=== PATIENT | male | born 1990 | race Caucasian/White ===

== ENCOUNTER 2021-08-30 09:32 | Inpatient (IN) ==
[2021-08-30 10:44] LABS: Basophils # (auto) 0.02 K/uL (0-0.2); Basophils % (auto) 0.5 %; Eosinophils % (auto) 2.3 %; Hematocrit (blood only) 40.3 % (42-52); Hemoglobin 13.5 g/dL (14.0-18.0); Immature Granulocytes # (auto) 0.01 K/uL (0.00-0.02); Immature Granulocytes % (auto) 0.2 %; Lymphocytes # (auto) 1.44 K/uL (1.2-3.4); Lymphocytes % (auto) 33.6 %; Mean Corpuscular Hemoglobin 26.4 pg (25-34); Mean Corpuscular Hgb Conc 33.5 g/dL (32-36); Mean Corpuscular Volume 78.7 fL (80-100); Mean Platelet Volume 8.5 fL (7.4-10.4); Neutrophils # (auto) 2.42 K/uL (1.4-6.5); Neutrophils % (auto) 56.4 %; Platelet Count 268 K/uL (130-400); RDW Coefficient of Variation 13.4 % (11.5-14.5); RDW Standard Deviation 38.5 fL (36.4-46.3); Red Blood Count 5.12 M/uL (4.7-6.1); White Blood Count 4.29 K/uL (4.8-10.8)
--- NOTE | 2021-08-30 11:02 | Emergency Department Note ---
Impression & Plan Biliary colic, Nausea, Irregular bowel habits, Abdominal pain, Anemia ED Provider Note NAME: JIMI ORELLANA AGE: 31 SEX: M : 1990 ARRIVES VIA: Walk-In INFORMANT: Patient, ED PROVIDER(S): Jacques Boyd MD Chief Complaint: Abdominal pain HPI: Patient does present with concern for abdominal pain which is been ongoing since May but is been acutely worse since this past weekend. The patient did go to [facility] and had a fairly unremarkable work-up at that time. The patient reportedly has had a prior history of imaging and HIDA scans. Patient does have biliary colic but without any history of gallstones per patient. Patient has been taking [id number] as well as prescription narcotic med ication but without improvement in symptoms. Patient states that it is a sharp ache that is fairly constant and located right upper quadrant. Patient does state it radiates to his back. No recent surgeries procedures or trauma to the abdomen or back. Patient denies any history of kidney stones dysuria hematuria. Patient denies any alcohol or tobacco use. The patient is supposed to have cholecystectomy on September [address] Tuttle but they did call the office today and they referred here for further evaluation and treatment. Patient has had intermittent constipation with diarrhea and does believe that this may be secondary to the narcotics. Patient is not vaccinated for COVID-19. Patient was seen by general surgery Dr. Tuttle on August 20 and the patient does seem to have a presentation of symptoms consistent with biliary colic. There was thought that the patient may have biliary hyperkinesia. The plan was for the patient to have a cholecystectomy to be completed in mid September with the patient has had worsening attacks worsening severity and increasing symptoms just in the last 5 days to where the patient does not think that he is going to be able to control his pain in the outpatient setting until his procedure the patient has had upper and lower endoscopies, CAT scan and ultrasound HIDA scan. Everything has been negative other than in the ejection fraction on his HIDA scan of 98% possibly indicative of biliary hyperkinesia. ROS: See HPI for pertinent positives and negatives. A total of 10 systems were reviewed and otherwise negative. Past medical history: See below Surgical history: See below Social history: See below Physical Exam: GENERAL: NAD, wearing glasses, wearing a mask, non-toxic. EYE EXAM: Normal conjunctiva. PERRL, no anisocoria and EOM's grossly intact w/o pain. NECK: Supple, no nuchal rigidity, no adenopathy, non-tender. No signs of meningismus. LUNGS: Clear to auscultation. Normal chest wall mechanics. HEART: NSR, no MRG. ABDOMEN: Abdomen soft, right upper quadrant pain without epigastric or lower abdominal pain, normo-active bowel sounds, no masses, no rebound or guarding. BACK: No CVA TTP. SKIN: No rashes and no bruising. UPPER EXTREMITIES: Upper extremities are grossly normal. LOWER EXTREMITIES: Grossly normal, no edema. NEURO EXAM: A&O x3, cranial nerves II-XII grossly intact, normal speech, moves all 4 extremities on command w/o issue. Differential diagnoses: Appendicitis, testicular torsion, infections, diverticulitis, UTI, obstruction, mesenteric ischemia, aortic pathology, inflammatory bowel disease, renal colic, PUD, pancreatitis, biliary pathology, hernia, volvulus, constipation, as well as other pathologies. Course: Patient was seen and evaluated the bedside. Full history physical exam was performed. Imaging Studies: See Below Cardiac monitoring: An order was placed for continuous cardiac monitoring. The monitor shows a rate of 75 with sinus rhythm. MDM: Patient was seen due to concerns for right upper quadrant pain. Blood work was obtained along with right upper quadrant ultrasound. Patient does have mild leukopenia and anemia but platelet count is normal. Kidney function is unremarkable. No major abnormalities with LFTs or lipase. Urinalysis shows ketones but no blood. Right upper quadrant ultrasound is negative. I did speak with the on-call general surgeon Robbie Rangel PA-C and the patient was admitted by Dr. Colbert of general surgery pending likely cholecystectomy tomorrow. Past Med/Surg History Medical History Asthma A CHILD-NO INHALERS Palpitations ON OCC-NO CARDIOLOGY Temporomandibular joint disorder PAIN IN JAW-NO LOCKING Surgical History H/O colonoscopy 03/2021 H/O nasal septoplasty History of esophagogastroduodenoscopy (EGD) Family History Grandfather (Maternal) Colorectal cancer Grandfather (Paternal) Diabetes Mother Family history of reaction to anesthesia SLOW TO WAKE UP Denies family history of Crohn's disease Ulcerative colitis Social History Smoking Status: Never smoker Second Hand Exposure: Yes (FATHER SMOKES); Hx Alcohol Use: Yes Alcohol type: beer, wine and hard liquor Alcohol Intake Frequency Comment: occasionally Hx Substance Use: No Preferred Language: Slovak Communication Ability: Effective Hearing Ability: Normal Brim Molder Required: No Beliefs That Will Affect Care: None marital status: Current Living Situation: Spouse current occupational status: employed 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 [employer] How many Children do You have: 0 Feels Safe at Home: Yes during the past year weight has: remained stable Assistive Devices: Contacts and Glasses Allergies Allergies Allergy/AdvReac Type Severity Reaction Status Date / Time No Known Allergies Allergy Verified 08/30/21 14:03 Home Meds Home Medications Medication Instructions Recorded Confirmed dicyclomine 10 mg capsule 10 mg PO TID PRN cap 07/30/21 08/30/21 ondansetron HCl 4 mg tablet 4 mg PO Q6H PRN 07/30/21 08/30/21 (Zofran) hydrocodone 5 mg-acetaminophen 325 1.5 tab PO UD PRN 08/30/21 08/30/21 mg tablet Results & Data (ED) Vital Signs Vital Signs - 24 hr 08/30/21 10:02 08/30/21 11:00 08/30/21 11:24 Temperature 36.6 C Temperature Source Oral Pulse Rate 72 Pulse Rate [Right Finger] 73 Pulse Rhythm Regular Pulse Rhythm [Right Finger] Regular Pulse Strength Normal Pulse Strength [Right Finger] Normal Respiratory Rate 20 18 Respiratory Effort / Characteristics Non-Labored Spontaneous Non-Labored Respiratory Depth Normal Normal Respiratory Pattern Regular Regular Blood Pressure 106/74 Blood Pressure [Right Arm] 119/74 Blood Pressure Mean 84 Blood Pressure Mean [Right Arm] 89 Blood Pressure Position Sitting Blood Pressure Position [Right Arm] Lying Pulse Oximetry 99 100 Oxygen Delivery Method Room Air Room Air Room Air Sepsis Recent Fever Within 48 Hours No Sepsis New/Unexplained Change in Mental Status No Sepsis Action Taken by Nursing No Action Required 08/30/21 12:00 08/30/21 14:00 Temperature Temperature Source Pulse Rate Pulse Rate [Right Finger] 73 70 Pulse Rhythm Pulse Rhythm [Right Finger] Regular Regular Pulse Strength Pulse Strength [Right Finger] Normal Normal Respiratory Rate 18 18 Respiratory Effort / Characteristics Non-Labored Non-Labored Respiratory Depth Normal Normal Respiratory Pattern Regular Blood Pressure Blood Pressure [Right Arm] 113/66 113/66 Blood Pressure Mean Blood Pressure Mean [Right Arm] 81 81 Blood Pressure Position Blood Pressure Position [Right Arm] Lying Lying Pulse Oximetry 100 99 Oxygen Delivery Method Room Air Room Air Sepsis Recent Fever Within 48 Hours Sepsis New/Unexplained Change in Mental Status Sepsis Action Taken by Intermediate Medications Current Medication List: was personally reviewed by me Laboratory Data Attestation: I reviewed the patient's lab results. Result diagrams: 08/30/21 10:33 08/30/21 10:33 Lab Results 08/30/21 08/30/21 08/30/21 Range/Units 10:33 10:33 15:00 WBC 4.29 L (4.8-10.8) K/uL RBC 5.12 (4.7-6.1) M/uL Hgb 13.5 L (14.0-18.0) g/dL Hct 40.3 L (42-52) % MCV 78.7 L (80-100) fL MCH 26.4 (25-34) pg MCHC 33.5 (32-36) g/dL RDW Std Deviation 38.5 (36.4-46.3) fL RDW Coeff of Trung 13.4 (11.5-14.5) % Plt Count 268 (130-400) K/uL MPV 8.5 (7.4-10.4) fL Immature Gran % (Auto) 0.2 % Neut % (Auto) 56.4 % Lymph % (Auto) 33.6 % [place] % (Auto) 7.0 % Eos % (Auto) 2.3 % Baso % (Auto) 0.5 % Neut # (Auto) 2.42 (1.4-6.5) K/uL Lymph # (Auto) 1.44 (1.2-3.4) K/uL [place] # (Auto) 0.30 (0.11-0.59) K/uL Eos # (Auto) 0.10 (0-0.5) K/uL Baso # (Auto) 0.02 (0-0.2) K/uL Immature Gran # (Auto) 0.01 (0.00-0.02) K/uL Sodium 139 (136-145) mmol/L Potassium 4.0 (3.5-5.1) mmol/L Chloride 107 (98-107) mmol/L Carbon Dioxide 29 (21-32) mmol/L Anion Gap 3.0 (3-11) BUN 11 (7-18) mg/dl Creatinine 1.23 (0.6-1.4) mg/dl Est Cr Clr Drug Dosing 68.3 ml/min Est GFR ( Amer) 90.1 ml/min Est GFR (Non-Af Amer) 77.7 ml/min BUN/Creatinine Ratio 8.8 L (10-20) Glucose 93 (70-99) mg/dl Calcium 9.5 (8.5-10.1) mg/dl Total Bilirubin 0.7 (0.2-1) mg/dl AST 14 L (15-37) U/L ALT 20 (12-78) U/L Alkaline Phosphatase 84 (45-117) U/L Total Protein 8.4 H (6.4-8.2) gm/dl Albumin 4.3 (3.4-5.0) gm/dl Globulin 4.1 H (2.5-4.0) gm/dl Albumin/Globulin Ratio 1.0 (0.9-2) Lipase 146 (73-393) U/L Urine Color Yellow Urine Appearance Clear (Clear) Urine pH 6.5 (4.5-7.5) Ur Specific [place] 1.017 (1.000-1.030) Urine Protein Negative (Negative) Urine Glucose (UA) Negative (Negative) Urine Ketones 2+ H (Negative) Urine Blood Negative (Negative) Urine Nitrite Negative (Negative) Urine Bilirubin Negative (Negative) Urine Urobilinogen Negative (Negative) Ur Leukocyte Esterase Negative (Negative) Administered Medications Discontinued Medications Sodium Chloride (Nss 1000ml) 1,000 mls @ 999 mls/hr IV .Q1H1M STA Stop: 08/30/21 12:24 Last Infusion: 08/30/21 13:20 Dose: 0 mls/hr Documented by: [id number] Admin: 08/30/21 11:52 Dose: 999 mls/hr Documented by: [id number] Morphine Sulfate (Morphine Sulfate 4 Mg/Ml 1 Ml Carp\Vial) 4 mg IV NOW STA Stop: 08/30/21 11:25 Last Admin: 08/30/21 11:52 Dose: 4 mg Documented by: [id number] Ondansetron HCl (Ondansetron Inj 2 Mg/Ml 2 Ml Vial) 4 mg IV NOW STA Stop: 08/30/21 11:25 Last Admin: 08/30/21 11:52 Dose: 4 mg Documented by: [id number] Imaging Data Radiologist's Impression: Gallbladder Ultrasound 08/30/21 11:24 ABDOMINAL ULTRASOUND, RIGHT UPPER QUADRANT HISTORY: Right upper quadrant pain/biliary colic. COMPARISON: None. FINDINGS: Pancreas: The pancreas demonstrates a normal echotexture. Liver: Unremarkable. Gallbladder: No gallbladder wall thickening. No gallstones. A 2 mm gallbladder polyp. CBD: 6 mm. Right kidney: No hydronephrosis. IMPRESSION: 1. No gallbladder wall thickening. No gallstones. 2. Normal caliber common bile duct. 3. Incidental note is made of a 2 mm gallbladder polyp. ACT 112: Negative or not required by law. Electronically signed by: Jose G Spicer M.D. 08/30/2021 12:35 PM Discharge Plan Visit Data Chief Complaint: Abdominal Pain Stated Complaint: GALLBLADDER PAIN ED Provider: Jacques Boyd Discharge Problem: Biliary colic, Nausea, Irregular bowel habits, Abdominal pain, Anemia Patient Disposition: Admitted As Inpatient Forms [facility] Prescriptions Prescriptions: No Action dicyclomine 10 mg capsule 10 mg PO TID PRN (Reason: Abdominal Pain) RF: 0 ondansetron HCl [Zofran] 4 mg tablet 4 mg PO Q6H PRN (Reason: Nausea) RF: 0 hydrocodone-acetaminophen 5-325 mg tablet 1.5 tab PO UD PRN (Reason: Pain) RF: 0 Referrals Referrals: Bijan Samson M.D. [Primary Care Provider] -
[2021-08-30 11:03] LABS: Albumin Level 4.3 gm/dl (3.4-5.0); BUN Creatinine Ratio 8.8 (10-20); Calcium 9.5 mg/dl (8.5-10.1); Creatinine Clr Calc Pharmacy 68.3 ml/min; Est GFR (African American) 90.1 ml/min; Est GFR (Non-African American) 77.7 ml/min
[2021-08-30 11:06] LABS: Bilirubin,Total 0.7 mg/dl (0.2-1); Globulin 4.1 gm/dl (2.5-4.0); Total Protein 8.4 gm/dl (6.4-8.2)
[2021-08-30] MEDS ORDERED: ONDANSETRON INJ 2 MG/ML 2 ML VIAL IV STA (11:24)
[2021-08-30] MEDS ORDERED: MoRPHine SULFATE 4 MG/ML 1 ML CARP\\VIAL IV STA (11:24)
[2021-08-30] MEDS ORDERED: SODIUM CHLORIDE 0.9% 1000ML 1,000 ML IV STA (11:24)
--- NOTE | 2021-08-30 12:36 | Ultrasound Report ---
ABDOMINAL ULTRASOUND, RIGHT UPPER QUADRANT HISTORY: Right upper quadrant pain/biliary colic. COMPARISON: None. FINDINGS: Pancreas: The pancreas demonstrates a normal echotexture. Liver: Unremarkable. Gallbladder: No gallbladder wall thickening. No gallstones. A 2 mm gallbladder polyp. CBD: 6 mm. Right kidney: No hydronephrosis. IMPRESSION: 1. No gallbladder wall thickening. No gallstones. 2. Normal caliber common bile duct. 3. Incidental note is made of a 2 mm gallbladder polyp. ACT 112: Negative or not required by law. Electronically signed by: Jose G Spicer M.D. 08/30/2021 12:35 PM
--- NOTE | 2021-08-30 14:15 | History & Physical Report ---
Date of Service August 30, 2021 Assessment & Plan (1) Biliary colic: Plan: Was scheduled for outpatient surgery but symptoms have increased and has been to the ED the past two days. Will plan for admission for IV therapy and laparoscopic cholecystectomy in the morning. History of Present Illness Primary Care Provider: Bijan Samson 31 y/o male with RUQ pain, nausea for the past three nights. Was at [facility] ER yesterday. Is scheduled for outpatient cholecystectomy in two weeks. Symptoms have increased since he was last seen in clinic [address] Tuttle. Allergies Allergy/AdvReac Type Severity Reaction Status Date / Time No Known Allergies Allergy Verified 08/30/21 14:03 Home Medications Medication Instructions Recorded Confirmed Type dicyclomine 10 mg capsule 10 mg PO TID PRN cap 07/30/21 08/30/21 History ondansetron HCl 4 mg tablet 4 mg PO Q6H PRN 07/30/21 08/30/21 History (Zofran) hydrocodone 5 mg-acetaminophen 325 1.5 tab PO UD PRN 08/30/21 08/30/21 History mg tablet Past Med/Surg History Medical History Asthma A CHILD-NO INHALERS Palpitations ON OCC-NO CARDIOLOGY Temporomandibular joint disorder PAIN IN JAW-NO LOCKING Surgical History H/O colonoscopy 03/2021 H/O nasal septoplasty History of esophagogastroduodenoscopy (EGD) Family History Grandfather (Maternal) Colorectal cancer Grandfather (Paternal) Diabetes Mother Family history of reaction to anesthesia SLOW TO WAKE UP Denies family history of Crohn's disease Ulcerative colitis Social History Smoking Status: Never smoker Second Hand Exposure: Yes (FATHER SMOKES); Hx Alcohol Use: Yes Alcohol type: beer, wine and hard liquor Alcohol Intake Frequency Comment: occasionally Hx Substance Use: No Preferred Language: Barbadian Communication Ability: Effective Hearing Ability: Normal Software Licensing Analyst Required: No Beliefs That Will Affect Care: None marital status: Current Living Situation: Spouse current occupational status: employed 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[employer] How many Children do You have: 0 Feels Safe at Home: Yes during the past year weight has: remained stable Assistive Devices: Contacts and Glasses Review of Systems Constitutional: + anorexia; no fever and no chills Respiratory: no cough and no dyspnea Gastrointestinal: + abdominal pain, + nausea, + vomiting and + diarrhea/loose stools Physical Exam Constitutional: WD/WN, vitals as above Respiratory: normal respiratory effort, lungs clear to auscultation Cardiovascular: RRR, no murmur, no edema Gastrointestinal (Abdomen): Inspection/Auscultation: abdomen normal to inspection; abdomen not distended Percussion/Palpation: + abdomen tender (RUQ) and abdomen soft Skin: no rashes, warm and dry Results & Data Results & Data ([facility]) Vital Signs (Past 12 Hours) Vital Signs Temp Pulse Pulse Resp BP BP Pulse Ox 08/30/21 12:00 73 18 113/66 100 08/30/21 11:00 73 18 119/74 100 08/30/21 10:02 36.6 C 72 20 106/74 99 Supervising Physician Co-Signing Physician Notes I personally saw and examined the patient with Jose Rangel PA-C and agree with the assessment and plan. 31-year-old male with biliary colic and biliary hyperkinesia He has had 3 days of pain and is unable to tolerate p.o. intake Will plan on admission and clear liquid diet until midnight then n.p.o. and plan for laparoscopic cholecystectomy tomorrow Consent was obtained risks were discussed including bleeding, infection, bile leak, ductal injury He is aware that his symptoms may not resolve with cholecystectomy
[2021-08-30 15:23] LABS: Appearance Urine Clear (Clear); Bilirubin Urine Negative (Negative); Blood Urine Negative (Negative); Color Urine Yellow; Glucose Urine UA Negative (Negative); Ketones Urine 2+ (Negative); Leukocyte Esterase Urine Negative (Negative); Nitrite Urine Negative (Negative); Protein Urine Negative (Negative); Specific Gravity Urine 1.017 (1.000-1.030); Urobilinogen Urine Negative (Negative); pH Urine 6.5 (4.5-7.5)
[2021-08-30] MEDS: ONDANSETRON INJ 2 MG/ML 2 ML VIAL IV PRN (19:43)
[2021-08-30] MEDS ORDERED: MoRPHine SULFATE 4 MG/ML 1 ML CARP\\VIAL IV PRN (19:45)
--- NOTE | 2021-08-30 21:11 | Communication Note ---
Date of Service: August 30, 2021 I was called by RN earlier this evening at approximately 7:30 PM the patient was having nausea as well as abdominal pain. Patient was not having any emesis and not having any fevers. Patient was medicated with morphine as well as Zofran. I was contacted by the RN again at approximately 9:00 PM that patient was having continued nausea. I visited with the patient in the emergency department in room B3. On exam the patient's abdomen is soft and nondistended. He did have pain with palpation in the right upper quadrant. Patient did not have any emesis while I was in attendance. Vital signs were reviewed and patient's BP is 94/55. His pulse is 91 and regular. Respirations are 18 and nonlabored and patient is noted be afebrile with temperature 36.8. His pulse ox is 99% on room air. Is quite possible that the patient's nausea is related to both his underlying gallbladder issues but may also be a side effect of the analgesics have been administered. As the Zofran was unsuccessful (was given within the past hour) we will try an alternative antiemetic. Order placed for 12.5 mg of IV Phenergan. Plans noted for patient undergo cholecystectomy tomorrow morning by Dr. Colbert. We will keep patient n.p.o..
[2021-08-30] MEDS ORDERED: PROMETHAZINE HCL 12.5 MG in SODIUM CHLORIDE 0.9% 50 ML IV ONE (21:30)
[2021-08-30] MEDS ORDERED: MoRPHine SULFATE 2 MG/ML CARP IV PRN (23:04)
[2021-08-30] MEDS ORDERED: DICYCLOMINE HCL 10 MG CAP PO PRN (23:04)
[2021-08-30] MEDS: LACTATED RINGER'S 1,000 ML IV SCH (23:41)
[2021-08-31] MEDS: LACTATED RINGER'S 1,000 ML IV SCH (07:49)
--- NOTE | 2021-08-31 10:23 | History & Physical Bridge Note ---
Date of Service August 31, 2021 History & Physical Bridge Note I have examined the patient, reviewed the History & Physical and in the interval since the performance of the History & Physical I have noted the following changes of clinical significance: no changes noted
[2021-08-31] MEDS ORDERED: EPINEPHrine INJ 1 MG/ML AMP ONE (10:25)
[2021-08-31] MEDS ORDERED: BUPIVACAINE 0.25% 30 ML VIAL ONE (10:25)
[2021-08-31] MEDS ORDERED: NEOSTIGMINE METHYLSULFATE 1 MG/ML 10ML VIAL ONE (10:30)
[2021-08-31] MEDS ORDERED: fentaNYL citrate 100 MCG/2 ML VIAL ONE (10:30)
[2021-08-31] MEDS ORDERED: PROPOFOL IV EMULSION 10 MG/ML 20 ML VIAL IV ONE (10:30)
[2021-08-31] MEDS ORDERED: DEXAMETHASONE SOD INJ 4 MG/ML VIAL ONE (10:30)
[2021-08-31] MEDS ORDERED: GLYCOPYRROLATE 0.2 MG/ML VIAL ONE (10:30)
[2021-08-31] MEDS ORDERED: ONDANSETRON INJ 2 MG/ML 2 ML VIAL ONE (10:30)
[2021-08-31] MEDS ORDERED: LIDOCAINE 2% 2 ML VIAL/AMP(20MG/ML) INFIL ONE (10:30)
[2021-08-31] MEDS ORDERED: MIDAZOLAM HCL 1 MG/ML 2ML VIAL ONE (10:30)
--- NOTE | 2021-08-31 10:46 | Anesthesiology Consultation ---
Date of Service August 31, 2021 Assessment & Plan (1) Encounter for pre-operative examination: Chart Review Chart Review: Acceptable Risk for Surgery and Patient NOT seen in Pre Admission Testing Consults Requested none History Surgery Operation Date: 08/31/21 10:35 Proposed Procedures p Laparoscopic Cholecystectomy - Saji Colbert DO Height/Weight Height: 5 ft 6 in Weight: 64.5 kg Allergies Allergy/AdvReac Type Severity Reaction Status Date / Time No Known Allergies Allergy Verified 08/30/21 14:03 Medications Home Medications Medication Instructions Recorded Confirmed Last Taken dicyclomine 10 mg capsule 10 mg PO TID PRN cap 07/30/21 08/30/21 08/29/21 ondansetron HCl 4 mg tablet 4 mg PO Q6H PRN 07/30/21 08/30/21 08/30/21 (Zofran) hydrocodone 5 mg-acetaminophen 325 1.5 tab PO UD PRN 08/30/21 08/30/21 08/30/21 mg tablet Active Medications Generic Name Dose Route Start Last Admin Trade Name Imtiazq PRN Reason Stop Dose Admin Lactated Ringer's 1,000 mls @ 125 mls/hr 08/30/21 23:04 08/31/21 07:49 Lr IV 09/29/21 23:03 125 mls/hr .Q8H JIN Administration Morphine Sulfate 4 mg 08/30/21 19:45 08/30/21 19:53 Morphine Sulfate 4 Mg/Ml 1 Ml Carp\Vial IV 09/13/21 19:44 4 mg Q1H PRN Administration Pain (6,7,8,9,10) Ondansetron HCl 4 mg 08/30/21 19:26 08/30/21 19:43 Ondansetron Inj 2 Mg/Ml 2 Ml Vial IV 09/29/21 19:25 4 mg Q4H PRN Administration Nausea And Vomiting NPO Date Last Intake of Fluids: 08/30/21 Time Last Intake of Fluids: 23:50 Date Last Intake of Solids: 08/30/21 Past Medical History Medical History Asthma A CHILD-NO INHALERS Palpitations ON OCC-NO CARDIOLOGY Temporomandibular joint disorder PAIN IN JAW-NO LOCKING Past Family History Family History Grandfather (Maternal) Colorectal cancer Grandfather (Paternal) Diabetes Mother Family history of reaction to anesthesia SLOW TO WAKE UP Denies family history of Crohn's disease Ulcerative colitis Past Surgical History Surgical History H/O colonoscopy 03/2021 H/O nasal septoplasty History of esophagogastroduodenoscopy (EGD) Social History Smoking Status: Never smoker Hx Alcohol Use: Yes Alcohol type: beer, wine and hard liquor alcohol intake frequency: a few times a month Hx Substance Use: Yes substance use type: opiates Substance Use Type Other:: perscribed hydrocodon Last Used Substance: Just Prior to Arrival Physical Exam Vital Signs Last Vital Signs Temp 36.7 C 08/31/21 07:48 Pulse 77 08/31/21 07:48 Resp 16 08/31/21 07:48 BP 108/66 08/31/21 07:48 Pulse Ox 97 08/31/21 07:48 Testing Laboratory Results 08/30/21 10:33 08/30/21 10:33 Urine Color Yellow 08/30/21 15:00 Urine Appearance Clear (Clear) 08/30/21 15:00 Urine pH 6.5 (4.5-7.5) 08/30/21 15:00 Ur Specific [place] 1.017 (1.000-1.030) 08/30/21 15:00 Urine Protein Negative (Negative) 08/30/21 15:00 Urine Glucose (UA) Negative (Negative) 08/30/21 15:00 Urine Ketones 2+ (Negative) H 08/30/21 15:00 Urine Nitrite Negative (Negative) 08/30/21 15:00 Ur Leukocyte Esterase Negative (Negative) 08/30/21 15:00
[2021-08-31] MEDS ORDERED: ceFAZolin 2,000 MG/15 ML IV PUSH IV ONE (11:21)
[2021-08-31] MEDS ORDERED: ceFAZolin 2000MG 2,000 MG/15 ML SYR IV ONE (11:25)
[2021-08-31] MEDS ORDERED: SCOPOLAMINE 1 MG TDSY TD ONE ×2 (11:34→11:37)
[2021-08-31] MEDS ORDERED: ATROPINE SULFATE 0.1 MG/ML 10ML SYR IV PRN (11:34)
[2021-08-31] MEDS ORDERED: PROMETHAZINE HCL 12.5 MG in SODIUM CHLORIDE 0.9% 50 ML IV PRN (11:34)
[2021-08-31] MEDS ORDERED: ePHEDrine sulfate 50 MG/ML AMP IV PRN (11:34)
[2021-08-31] MEDS ORDERED: ONDANSETRON INJ 2 MG/ML 2 ML VIAL IV PRN (11:34)
[2021-08-31] MEDS ORDERED: KETOROLAC 30 MG/ML VIAL ONE (12:39)
[2021-08-31] MEDS ORDERED: ROCURONIUM BROMIDE 10 MG/ML 5 ML VIAL IV ONE (12:39)
--- NOTE | 2021-08-31 12:44 | Post Operative Brief Note ---
PG Immediate Post Op with CF Date of Surgery August 31, 2021 Pre & Post Diagnosis Operation Date: 08/31/21 10:35 Pre-Op Diagnosis: BILIARY COLIC, gallbladder polyp Post-Op Diagnosis: BILIARY COLIC, gallbladder polyp I identified the patient and participated in the time-out.: Yes Procedure Operation Date: 08/31/21 10:35 Actual Procedures p Laparoscopic Cholecystectomy(Not Applicable) - Saji Colbert DO Surgeon Saji Colbert DO Packing Tractor Machine Operator Adina Baldwin PA-C Estimated Blood Loss 5 Findings See Below Omental adhesions to gallbladder Specimens Specimen Description: Permanent specimen: A. Gallbladder and contents Anesthesia Type General Complications none Disposition Disposition: Recovery Room
--- NOTE | 2021-08-31 12:49 | Operative Report ---
PG Post Operative Report Pre & Post Diagnosis Operation Date: 08/31/21 10:35 Pre-Op Diagnosis: BILIARY COLIC, gallbladder polyp Post-Op Diagnosis: BILIARY COLIC, gallbladder polyp I identified the patient and participated in the time-out.: Yes Procedure Operation Date: 08/31/21 10:35 Actual Procedures p Laparoscopic Cholecystectomy(Not Applicable) - Saji Colbert DO Surgeon Saji Colbert DO Plumbing Designer Adina Baldwin PA-C Estimated Blood Loss 5 Findings See Below Omental adhesions to gallbladder Fluids see anesthesia record Specimens Gallbladder to pathlogy Drains None Anesthesia Type General Complications none Disposition Disposition: Recovery Room Indications 31 yo male with hyperdynamic gallbladder, gallbladder polyp with biliary colic symptoms Description of Procedure The patient was brought to the operating room and placed in the supine position with both arms extended. At this time he underwent general endotracheal anesthesia without any problems. He was given appropriate pre-operative antibiotics. His abdomen was prepped and draped in the usual sterile fashion. A timeout was called, the procedure was verified as Laparoscopic cholecystectomy, possible open, possible intra-operative cholangiogram. Surgical, nursing and anesthesia teams agreed and the procedure was begun. After injection of 0.25% Marcaine with epinephrine, a supraumbilical vertical incision was made and carried down to the fascia using S-retractors. The a bdominal wall was then elevated with towel clamps and abdomen entered using the Veress needle confirming position using the saline drop test. Pneumoperitoneum was established. 5mm trocar was placed. Laparoscope was introduced. No injury from entry into the abdomen was visualized after inspection of the abdomen. Three further ports were placed under direct visualization. One 11mm in the subxiphoid region and two 5mm in the RUQ. At this time the abdomen was inspected and the gallbladder identified. There were omental adhesions to the gallbladder that were lysed using blunt and sharp dissection. The gallbladder fundus was grasped and retracted cephalad. The gallbladder infundibulum was then grasped and retracted laterally. The cystic duct and cystic artery were then identified and skeletonized. The critical view of safety was obtained. They were both then clipped twice proximally and once distally and then divided using scissors. The gallbladder was then taken off of the liver bed using electrocautery and placed in an endocatch bag and removed from the subxiphoid port. The liver bed was then inspected and no bile leak or bleeding was evident. The subxiphoid port was then closed using 0-Vicryl using the suture passer. The trocars were then removed under direct visualization and no bleeding was present. Abdomen was desufflated. The skin was then closed using 4-0 Monocryl in a subcuticular fashion. Sterile dressings were applied. Needle and sponge counts were correct x 2. At this time the patient was awoken from anesthesia and extubated having remained stable throughout the entire case. The patient was then transported to PACU in stable condition. The physician orthopaedic physician assistant was present and scrubbed throughout the entire case. She was essential in positioning, prepping and draping the patient, driving the laparoscope, retraction and exposure, closure of the incision and placement of the dressings. I attest to the content of the Intraoperative Record and any orders documented therein. Any exceptions are noted below.
[2021-08-31] MEDS: ONDANSETRON INJ 2 MG/ML 2 ML VIAL IV PRN ×2 (12:57→18:24)
[2021-08-31] MEDS: fentaNYL citrate 100 MCG/2 ML VIAL IV PRN ×2 (12:58→13:03)
[2021-08-31] MEDS: HYDROmorphone INJ 1 MG/ML SYRINGE IV PRN ×4 (13:15→13:35)
--- NOTE | 2021-08-31 13:44 | Anesthesiology Progress Note ---
Date of Service August 31, 2021 Anesthesia Post Procedure Vital Signs Vital Signs: Temp Pulse Pulse Pulse Resp BP BP 08/31/21 13:40 63 18 125/65 08/31/21 13:30 68 13 127/53 L 08/31/21 13:20 84 16 118/64 08/31/21 13:10 88 18 123/55 L 08/31/21 13:00 100 H 13 127/66 08/31/21 12:54 97.7 F 115 H 16 143/70 H 08/31/21 11:05 98.8 F 97 H 20 116/59 L 08/31/21 07:48 98.1 F 77 16 108/66 08/30/21 23:05 98.2 F 76 16 08/30/21 18:00 91 H 18 08/30/21 16:46 98.2 F 58 L 18 101/60 08/30/21 16:00 63 18 08/30/21 14:00 70 18 BP Pulse Ox 08/31/21 13:40 96 08/31/21 13:30 99 08/31/21 13:20 100 08/31/21 13:10 100 08/31/21 13:00 100 08/31/21 12:54 100 08/31/21 11:05 100 08/31/21 07:48 97 08/30/21 23:05 122/71 100 08/30/21 18:00 94/55 L 99 08/30/21 16:46 98 08/30/21 16:00 108/75 100 08/30/21 14:00 113/66 99 Pain Intensity Abdomen: Pain Intensity: 8 Transfer of Care Handoff Completed per policy Notes Mental Status: alert / awake / arousable and participated in evaluation Patient Amnestic to Procedure: Yes Nausea / Vomiting: adequately controlled Pain: adequately controlled Airway Patency, RR, SpO2: stable & adequate BP & HR: stable & adequate Hydration State: stable & adequate Anesthetic Complications: no major complications apparent and Pt Satisfied with anesthetic care
[2021-08-31] MEDS ORDERED: CHECK SCOPOLAMINE PATCH PLACEMENT SCH (16:00)
== END 2021-08-31 19:01 | disposition home or self-care (01) | DRG 419 ==
LOC: ED 09:32 → EDINP 14:20 → 3E 16:46
DX: D64.9 Anemia, unspecified; K82.8 Other specified diseases of gallbladder; R11.0 Nausea; R19.4 Change in bowel habit; K80.50 Calculus of bile duct without cholangitis or cholecystitis without obstruction; Z20.822 Contact with and (suspected) exposure to COVID-19